=== PATIENT | female | born 1975 | race Caucasian/White ===

== ENCOUNTER → 2017-11-02 15:02 | Outpatient (CLI) | payer BC, SELFPAY ==
[2017-11-02 16:52] LABS: Estradiol 111.3 pg/mL; Follicle Stimulating Hormone 6.2 mIU/mL; T4 Free Direct 1.06 ng/dL (0.76-1.46); Thyroid Stim Hormone (TSH) 0.83 uIU/mL (0.358-3.74)
== END ==
PROVIDERS: Visit Provider Obstetrics & Gynecology
DX: N95.1 Menopausal and female climacteric states (principal)
CPT/HCPCS: 36415; 82670; 83001; 84439; 84443

== ENCOUNTER 2018-02-01 06:33 | Day surgery (SDC) | payer BC, SELFPAY ==
[2018-02-01 06:57] VITALS: BP 141/90; PULSE 69; RESP 14; TEMP 36.8; O2SAT 99; BMI 32.8
[2018-02-01] MEDS: Cefazolin 2 GM in 0.9% Normal Saline 100 ML IV (07:00)
[2018-02-01 09:02] VITALS: BP 138/86; BP 141/90; PULSE 92; RESP 16; TEMP 36.3; O2SAT 96
--- NOTE | 2018-02-01 09:12 | PCM.DC.URO ---
Discharge Diet: No Restrictions Discharge Activity: May not drive while taking narcotic pain medications., May Shower, - - No lifting over 5 pounds. No strenuous exercise or activity. Nothing per vagina for 4 weeks. Ok to shower, no tub bathing for 4 weeks. May resume sexual activity in: 4-6 weeks Lifting Restrictions: 5 pounds Call your doctor if your incision/area has: Continuous Slow Oozing, Sudden Increased Bleeding, Increased Pain/ Swelling, Foul Smelling Discharge Call your doctor if you observe: Fever of 101 or Higher, Inability to urinate, Inability to have a bowel movement, Shortness of breath, Chest pain, Calf discomfort Allergies/Adverse Reactions: Allergies azithromycin [From Zithromax Z-Bronson] Adverse Reaction (Mild, Verified 01/25/18 14:32) nausea Medications to take at Discharge levothyroxine 137 mcg tablet 137 mcg PO QDAY 11/02/17 Ascorbic Acid [Vitamin C] 1,000 mg PO DAILY 01/25/18 Calcium Carbonate/Vitamin D3 [Calcium 500-Vit D3 200 Tablet] 1 each PO DAILY 01/25/18 Cholecalciferol (Vitamin D3) [Vitamin D3] 5,000 unit PO DAILY 01/25/18 Iodoral 1 cap PO DAILY 01/25/18 Lactobacillus Combination No.4 [Probiotic] 1 each PO DAILY 01/25/18 Multivitamin [Multiple Vitamins] 1 each PO DAILY 01/25/18 Selenium 100 mcg PO DAILY 01/25/18 Vitamin B Complex 1 each PO DAILY 01/25/18 Cephalexin [Keflex] 500 mg PO Q12 3 Days #6 cap 02/01/18 Oxycodone HCl/Acetaminophen [Percocet 5/325] 1 - 2 tab PO Q6H PRN PRN 7 Days #30 tab 02/01/18 Phenazopyridine HCl [Pyridium] 200 mg PO TID PRN PRN 7 Days #30 tab 02/01/18 The following prescriptions were given: Oxycodone HCl/Acetaminophen [Percocet 5/325] 1 - 2 tab PO Q6H PRN PRN 7 Days #30 tab PRN Reason: Pain Cephalexin [Keflex] 500 mg PO Q12 3 Days #6 cap Phenazopyridine HCl [Pyridium] 200 mg PO TID PRN PRN 7 Days #30 tab PRN Reason: Bladder Spasms Orders to be completed after discharge: Post Void Residual Bladder [US] Location: None Selected Primary Care Physician: [facility] Doctor,Out of [Primary Care Provider] - Test Results: Test results from this visit will be discussed in further detail at your follow-up appointment, if applicable. Please Follow Up With: Maxine Beverly MD When: call for appt to be seen in 2 weeks Proposed Discharge Date: 02/01/18
[2018-02-01 09:15] VITALS: BP 126/88; BP 141/90; PULSE 79; RESP 16; O2SAT 99
--- NOTE | 2018-02-01 09:17 | OP.PN_ITS ---
Immediate Post-Op Note Date of Procedure: 02/01/18 Primary Surgeon/Physician: Maxine Beverly MD merchandise support associate: Ana Pre-Operative Diagnosis: stress urinary incontinence, urethral hypermobility Post-Operative Diagnosis: same Surgery/Procedure Performed:: midurethral sling (Altis) and cystoscopy Description of Surgical Findings:: sling inserted without complication, flat position. Estimated Blood Loss: 10cc Specimen's removed: none Type of Anesthesia:: General - Admit VTE Documentation VTE Present on Admission: Yes VTE Mechan Device Prophylaxis: SCD's VTE Pharm Prophylaxis ordered?: No Reason prophylaxis not ordered:: Treatment Not Indicated
[2018-02-01 09:30] VITALS: BP 124/91; BP 141/90; PULSE 77; RESP 16; O2SAT 96
[2018-02-01 09:37] VITALS: BP 126/90; BP 141/90; PULSE 74; RESP 16; TEMP 36.2; O2SAT 97
[2018-02-01 11:09] VITALS: BP 141/90
--- NOTE | 2018-02-08 11:58 | OP.PCM_ITS ---
Problem List (1) JEREMIAH (stress urinary incontinence, female) Status: Acute (2) Urethral hypermobility Status: Acute Report of Operation Date of Procedure: 02/01/18 Pre-Operative Diagnosis: stress urinary incontinence, urethral hypermobility Post-Operative Diagnosis: same Surgery/Procedure Performed:: midurethral sling (Altis) and cystoscopy Description of Surgical Findings:: sling inserted without complication, flat position. shift manager: Ana Type of Anesthesia:: General Specimen's removed: none Estimated Blood Loss (mL): 10cc Description of Procedure: The patient is a 42-year-old female who presented to me with stress urinary incontinence desiring surgical intervention. All risks benefits and alternatives were discussed and she agreed to proceed with a mid urethral sling insertion. Patient was taken to the operating room and placed on the operating room table. Anesthesia monitored the head, neck, airway, IV access, vital signs throughout the case. Once anesthesia was appropriately administered the patient was placed into exaggerated dorsal lithotomy and Trendelenburg position. She was prepped and draped in usual sterile fashion. A 16 Icelandic Tsai catheter was inserted and the bladder was emptied. The mid urethra was identified and injected submucosally for hydrostatic dissection and hemostatic control. At approximately 1.5 cm mid urethral incision vertical in fashion was then made. Both sharp and blunt dissection ensued until the periurethral space was opened bilaterally. Starting with the patient's right side the office mid urethral sling was inserted using the trocar into the obturator complex. The sling lay in a flat nature and this process was repeated on the right side. Tensioning was then performed and the sling lay flat against the urethra without pressure. At this time the mid urethral incision was closed with running interlocking 2-0 Vicryl. A cystourethroscopy was performed revealing no evidence of injury to the urinary bladder or the urethra. There was no foreign body identified and no blood in the bladder. This time the bladder was left minimally full, the scope was removed and the patient was awakened and taken to the recovery room in good condition. Grafts/Implants Used: Altis midurethral sling - Complications none - Admit VTE Documentation VTE Present on Admission: Yes VTE Mechan Device Prophylaxis: SCD's VTE Pharm Prophylaxis ordered?: No Reason prophylaxis not ordered:: Treatment Not Indicated
== END 2018-02-01 11:21 | disposition home or self-care (01) ==
LOC: SDC 06:33 → AC 06:34
PROVIDERS: Referring Provider Urology; Visit Provider Urology
PROC: 0TJB8ZZ Inspection of Bladder, Via Natural or Artificial Opening Endoscopic (ICD-10-PCS; CPT 57288; principal; 2018-02-01 07:50)
DX: N39.3 Stress incontinence (female) (male) (principal); N36.41 Hypermobility of urethra; Z90.710 Acquired absence of both cervix and uterus
CPT/HCPCS: 57288; J7120; J2405

== ENCOUNTER → 2018-09-08 12:06 | Outpatient (CLI) | payer BC, SELFPAY ==
[2018-06-06 13:28] VITALS: BMI 32.8
[2018-08-31 12:19] VITALS: BMI 32.8
--- NOTE | 2018-09-08 12:08 | BI_ITS ---
MAMMOGRAPHY - BILATERAL SCREENING 3-D TOMOSYNTHESIS REASON FOR EXAM: Female, 43 years old. Bilateral Screening 3-D tomosynthesis PERTINENT HISTORY: No significant family history. TECHNIQUE: 2-D mammograms and 3-D Tomosynthesis of the breast (s) were performed. CAD was performed. COMPARISON: April 30, 2016, May 07, 2015 FINDINGS: The breast composition is composed of scattered fibroglandular density. Scattered benign calcifications are seen. No dense spiculated masses or suspicious microcalcifications are identified. No architectural distortion is identified. There is no skin thickening or retraction. There has been no significant change since the prior study. BI/SCREEN MAMM (CAD) W/PAPI BILAT IMPRESSION: No mammographic signs of malignancy. Routine yearly mammograms recommended. ASSESSMENT CATEGORY: BIRADS Category 2: Benign. A letter regarding these results will be sent to the patient by the facility within 30 days. FOLLOW UP RECOMMENDATION: Yearly follow up mammogram recommended. (A) Approximately 10% of breast cancers are not detected by mammography. A normal mammogram should not delay biopsy of a clinically suspicious abnormality. Electronically Signed: Mulugeta Nair MD at 16:59 EDT , Service support ,
== END ==
PROVIDERS: Referring Provider Obstetrics & Gynecology; Visit Provider Obstetrics & Gynecology
DX: Z12.31 Encounter for screening mammogram for malignant neoplasm of breast (principal)
CPT/HCPCS: 77063; 77067

== ENCOUNTER 2021-06-30 14:01 | Outpatient (CLI) | payer BC, SELFPAY ==
--- NOTE | 2021-06-30 14:06 | BI_ITS ---
MAMMOGRAPHY - BILATERAL SCREENING 3-D TOMOSYNTHESIS REASON FOR EXAM: Female, 46 years old. screening PERTINENT HISTORY: No significant family history. TECHNIQUE: 2-D mammograms and 3-D Tomosynthesis of the breast (s) were performed. CAD was performed. COMPARISON: 09/08/2018 FINDINGS: The breast composition is heterogeneously dense that can obscure small breast masses. Scattered benign calcifications are seen. No dense spiculated masses or suspicious microcalcifications are identified. No architectural distortion is identified. There is no skin thickening or retraction. There has been no significant change since the prior study. BI/SCRN MAMM (CAD)W/PAPI BILAT IMPRESSION: No mammographic signs of malignancy. Routine yearly mammograms recommended. ASSESSMENT CATEGORY: BIRADS Category 1: Negative. A letter regarding these results will be sent to the patient by the facility within 30 days. FOLLOW UP RECOMMENDATION: Yearly follow up mammogram recommended. (A) Approximately 10% of breast cancers are not detected by mammography. A normal mammogram should not delay biopsy of a clinically suspicious abnormality. Electronically Signed: Sreekanth Ruby MD at 15:21 EDT ,
== END 2021-06-30 23:59 | disposition home or self-care (01) ==
LOC: OPBI 14:04
PROVIDERS: Visit Provider Obstetrics & Gynecology
DX: Z12.31 Encounter for screening mammogram for malignant neoplasm of breast (principal)
CPT/HCPCS: 77063; 77067